=== PATIENT | male | born 1945 | race Caucasian/White ===

== ENCOUNTER 2016-10-19 | Emergency (ER) | payer OTHER ==
[~2016-10-19] MED LIST: ANTIVERT12.5 MG PO; ASPIR-LOW81 MG PO; COUMADIN5 MG PO; FLONASE 0.05% N16 GM; GLUCOPHAGE 500500 MG PO; LEVAQUIN500 MG PO; NEURONTIN 300300 MG PO; NORCO 5-325 TA1 EACH PO; TYLENOL W/CODEIN1 E1 PO; VOLTAREN EC 7575 MG PO; ZYRTEC10 MG PO
== END 2016-10-19 18:20 | disposition left against medical advice (07) ==
DX: Z53.20 Procedure and treatment not carried out because of patient's decision for unspecified reasons (principal)
CPT/HCPCS: 93005

== ENCOUNTER → 2016-11-09 | Outpatient (CLI) | payer OTHER | LOC: KOH-I 10:47 | DX: R05 Cough (principal); J43.9 Emphysema, unspecified | CPT/HCPCS: 71020 ==

== ENCOUNTER → 2016-11-12 | Outpatient (CLI) | payer OTHER | LOC: RT 11:37 | DX: R55 Syncope and collapse (principal); R42 Dizziness and giddiness; R94.39 Abnormal result of other cardiovascular function study ==

== ENCOUNTER 2020-12-12 03:46 | Emergency (ER) | payer MEDICARE ==
[~2020-12-12 03:46] MED LIST changes: +ELIQUIS5 MG PO; +FERROUS SULFAT325 MG PO; +FLEXERIL 10 MG10 MG PO; +FLORINEF 0.1 M0.1 MG PO; +HYDROCODON-ACE1 EAC4 PO; +HYDROXYZINE HCL10 MG PO; +LISINOPRIL20 MG PO; +TAMSULOSIN HCL0.4 MG PO
[2020-12-12 04:43] LABS: HEMOGLOBIN 10.4 gm/dl (14.0-17.5); RED BLOOD COUNT 2.98 M/UL (4.20-5.50); WHITE BLOOD COUNT 7.6 K/UL (4.5-11.0)
[2020-12-12 04:57] LABS: BUN/CREATININE RATIO 14 (0-10)
== END 2020-12-12 08:49 | disposition home or self-care (01) ==
LOC: ER1 03:46
PROVIDERS: Family Medicine
DX: I71.4 Abdominal aortic aneurysm, without rupture (principal); Z87.442 Personal history of urinary calculi; F17.290 Nicotine dependence, other tobacco product, uncomplicated
CPT/HCPCS: 80053; 81001; 82550; 82553; 83605; 83690; 83874; 84484; 85025; 85610; 87086; 99284; Q9967

== ENCOUNTER → 2021-02-13 | Outpatient (CLI) | payer MEDICARE | LOC: KOH-I 11:07 | DX: M50.30 Other cervical disc degeneration, unspecified cervical region (principal) | CPT/HCPCS: 72050 ==